=== PATIENT | female | born 1985 | race Caucasian/White ===

== ENCOUNTER 2020-06-15 12:34 | Inpatient (IN) | payer OTHER ==
[~2020-06-15] VITALS: Ht 172.7 cm; Wt 61.2 kg
[2020-06-15 12:53] LABS: ABSOLUTE BASOPHILS 0.1 thou/uL (0.0-0.2); ABSOLUTE LYMPHOCYTES 1.9 thou/uL (0.8-5.3); ABSOLUTE MONOCYTES 0.5 thou/uL (0.0-1.2); ABSOLUTE NEUTROPHILS 4.2 thou/uL (1.6-8.1); BASOPHILS 1.1 %; EOSINOPHILS 0.2 %; HEMATOCRIT 43.2 % (37.0-47.0); HEMOGLOBIN 14.9 gm/dL (12.0-15.0); LYMPHOCYTES 27.9 %; MCH 33.4 pg (26.0-34.0); MCHC 34.4 g/dL (28.0-37.0); MCV 97.1 fL (80.0-100.0); MONOCYTES 8.1 %; MPV 6.7 fl. (7.2-11.1); NUCLEATED RBCS 0 /100WBC; PLATELET COUNT* 270 thou/uL (150-400); POLYS 62.7 %; RBC 4.45 mil/uL (4.20-5.00); RDW-CV 13.5 % (10.5-14.5); WBC 6.7 thou/uL (4.0-11.0)
[2020-06-15 13:03] LABS: CALCIUM 7.5 mg/dL (8.5-10.1); CREATININE 0.8 mg/dL (0.6-1.3)
[2020-06-15 13:04] LABS: POTASSIUM 2.6 mmol/L (3.5-5.1)
[2020-06-15 13:07] LABS: ALBUMIN 3.4 g/dL (3.4-5.0); MAGNESIUM 1.4 mg/dL (1.8-2.4); TOTAL BILIRUBIN 0.3 mg/dL (<0.1-1.0); TOTAL PROTEIN 6.9 g/dL (6.4-8.2)
[2020-06-15 16:06] VITALS: BP 113/76
[2020-06-15 19:15] LABS: MAGNESIUM 2.1 mg/dL (1.8-2.4)
[2020-06-15 20:25] VITALS: BP 125/78
[2020-06-15 23:58] VITALS: BP 104/67
[2020-06-16 04:30] VITALS: BP 113/71
[2020-06-16 04:46] LABS: ABSOLUTE BASOPHILS 0.1 thou/uL (0.0-0.2); ABSOLUTE EOSINOPHILS 0.1 thou/uL (0.0-0.7); ABSOLUTE LYMPHOCYTES 2.6 thou/uL (0.8-5.3); ABSOLUTE NEUTROPHILS 5.5 thou/uL (1.6-8.1); EOSINOPHILS 0.9 %; HEMATOCRIT 41.3 % (37.0-47.0); HEMOGLOBIN 14.2 gm/dL (12.0-15.0); MCH 33.6 pg (26.0-34.0); MCHC 34.5 g/dL (28.0-37.0); MCV 97.5 fL (80.0-100.0); MONOCYTES 10.4 %; MPV 7.8 fl. (7.2-11.1); NUCLEATED RBCS 0 /100WBC; PLATELET COUNT* 253 thou/uL (150-400); POLYS 59.7 %; RBC 4.23 mil/uL (4.20-5.00); RDW-CV 13.1 % (10.5-14.5); WBC 9.3 thou/uL (4.0-11.0)
[2020-06-16 04:55] LABS: CALCIUM 7.2 mg/dL (8.5-10.1); CREATININE 0.8 mg/dL (0.6-1.3); POTASSIUM 3.7 mmol/L (3.5-5.1)
[2020-06-16 08:00] VITALS: BP 113/68
[2020-06-16 10:26] VITALS: BP 113/68
--- NOTE | 2020-06-16 10:49 | EKG ---
[place] [address] ELECTROCARDIOGRAM REPORT Name: ABIRON KUHN Room: [address] ADM IN .R.#: [id number] Admission: 06/15/20 Attend Phys: Benjie Goodson, Discharge: Date of : 85 Date of Service: 06/15/20 1339 Report #: [id number] THIS REPORT FOR: //name// [facility] ED Test Date: 2020-06-15 Test Time: 13:39:58 Pat Name: BAIRON KUHN Department: Room: [facility] Gender: F [employer] Operator: CHERRY : 1985 Requested By: Jv Butler Order Number: [id number] MD: Yazan Navas Measurements Intervals [place] Rate: 73 P: 75 [place]: 155 QRS: 75 QRSD: 95 T: 67 QT: 445 QTc: 491 Interpretive Statements Sinus rhythm Prolonged QT interval No previous ECG available for comparison Electronically Signed On 06-16-2020 10:49:21 CDT by Yazan Navas [email or web address] <ELECTRONICALLY SIGNED> By: Yazan Navas MD, [facility] 06/16/20 1049 1339 1339 Yazan Navas MD, [facility] /EPI
== END 2020-06-16 11:07 | disposition home or self-care (01) | DRG 897 ==
LOC: M.ERS 12:34 → M.TBA-ER 14:33 → M.2W 16:03
PROVIDERS: Emergency Medicine Emergency Medical Services; ADMIT Internal Medicine; ATTEND Internal Medicine
DX: F10.239 Alcohol dependence with withdrawal, unspecified (principal); E87.6 Hypokalemia; E83.42 Hypomagnesemia; Z20.828 Contact with and (suspected) exposure to other viral communicable diseases; F17.210 Nicotine dependence, cigarettes, uncomplicated; F41.9 Anxiety disorder, unspecified; Z79.899 Other long term (current) drug therapy